=== PATIENT | female | born 1965 | race Hispanic/Latino ===

== ENCOUNTER 2017-08-22 16:30 | Inpatient (IN) | payer BC, OTHER ==
[~2017-08-22] VITALS: Ht 162.6 cm; Wt 77.1 kg
[2017-08-22] MEDS ORDERED: ONDANSETRON HCL INJ 2 MG/ML VIAL IV STA (17:02)
[2017-08-22] MEDS ORDERED: SODIUM CHLORIDE 0.9% 1000ML 2,000 ML IV STA (17:02)
[2017-08-22 17:26] LABS: BASOPHILS % 0.3 % (0.0-1.0); HEMATOCRIT 49.1 % (34.2-44.1); HEMOGLOBIN 16.9 g/dL (12.0-16.0); MEAN CORPUSCULAR HEMOGLOBIN 31.5 pg (28-32); MEAN CORPUSCULAR HGB CONC 34.4 g/dL (31-35); MEAN CORPUSCULAR VOLUME 91.6 fL (81-99); MONOCYTES % 7.9 % (4.4-11.3); NEUTROPHILS # (AUTO) 10.5 (2.1-6.9); NEUTROPHILS % 82.9 % (38.7-80.0); PLATELET COUNT 263 x10e3/uL (140-360); RED BLOOD COUNT 5.36 x10e6/uL (3.6-5.1); RED CELL DISTRIBUTION WIDTH 12.6 % (11.7-14.4)
[2017-08-22 17:51] LABS: ALBUMIN/GLOBULIN RATIO 0.7 (0.8-2.0); ANION GAP 26.7 mmol/L (8-16); CALCIUM 10.8 mg/dL (8.4-10.2); CREATININE, SERUM 1.3 mg/dL (0.57-1.11); POTASSIUM 3.7 mmol/L (3.5-5.1)
[2017-08-22 17:57] LABS: CREATINE KINASE MB 1.3 ng/mL (0.00-5.00)
[2017-08-22] MEDS ORDERED: DEXTROSE 5%/0.45% SOD CHL 1,000 ML IV SCH (18:02)
[2017-08-22] MEDS ORDERED: POTASSIUM CHLORIDE 20MEQ/100ML 200 ML IV PRN (18:15)
[2017-08-22] MEDS ORDERED: MAGNESIUM SULF 1GRAM/DEXTROSE 100 ML IV PRN (18:15)
[2017-08-22] MEDS ORDERED: MORPHINE SULFATE 2 MG/ML SYR IV PRN (18:15)
[2017-08-22] MEDS ORDERED: INSULIN DETEMIR 100 UNIT/ML PEN SQ PRN (18:15)
[2017-08-22] MEDS: SODIUM CHLORIDE 0.9% 1000ML 1,000 ML IV ONE ×2 (19:00→19:59)
--- NOTE | 2017-08-22 19:04 | Diagnostic Imaging Report ---
EXAM: CT Abdomen and Pelvis WITH contrast INDICATION: \S\ABD PAIN \[id number] \S\1819 \S\Y COMPARISON: None. TECHNIQUE: Abdomen and pelvis were scanned utilizing a multidetector helical scanner from the lung base to the pubic symphysis after administration of IV contrast. Coronal and sagittal reformations were obtained. Routine protocol was performed. Scan was performed when during portal venous phase. IV CONTRAST: 100 mL of Isovue-370 ORAL CONTRAST: Water COMPLICATIONS: None RADIATION DOSE: Total DLP: 567.86 mGy*cm Estimated effective dose: (DLP x 0.015 x size factor) mSv CTDIvol has been reviewed. It is below the limits set by the Radiation Protocol Committee (RPC). FINDINGS: LINES and TUBES: None. LOWER THORAX: Unremarkable HEPATOBILIARY: Left hepatic lobe and hepatic dome subcentimeter hypodensities are too small to characterize. No hepatic mass. No biliary ductal dilation. GALLBLADDER: No radio-opaque stones or sludge. No wall thickening. SPLEEN: No splenomegaly. PANCREAS: No focal masses or ductal dilatation. ADRENALS: No adrenal nodules KIDNEYS/URETERS: Kidneys enhance symmetrically. No hydronephrosis. Complex appearing 2.7 cm right midpole parapelvic cyst (series 2, image 40). Stranding in right renal pelvis, surrounding the distal right renal artery, best seen on coronal image 62. No stones. GI TRACT: No abnormal distention, wall thickening, or evidence of bowel obstruction. Appendix is normal. PELVIC ORGANS/BLADDER: Unremarkable. Small calcified anterior uterine body/fundus fibroid. LYMPH NODES: No lymphadenopathy. VESSELS: Unremarkable. PERITONEUM / RETROPERITONEUM: No free air or fluid. BONES: Unremarkable. SOFT TISSUES: Unremarkable. IMPRESSION: Mild fat stranding in right renal pelvis, surrounding the distal right renal artery. There is also a 2.7 cm complex appearing cyst or collection in the right renal pelvis. Distal right renal artery injury with small adjacent hematoma cannot be excluded in the setting of trauma. Alternatively this could represent a mildly inflamed complex parapelvic cyst, mass, or an abscess. Recommend correlation with urinalysis and if indicated short-term follow-up. Otherwise, no evidence of acute inflammatory process or traumatic injury in the abdomen/pelvis. Signed by: Dr. Kavin Dia MD on 08/22/2017 7:00 PM
[2017-08-22] MEDS ORDERED: SODIUM CHLORIDE 0.9% 1000ML 1,000 ML IV ONE (19:10)
[2017-08-22] MEDS: SODIUM CHLORIDE 0.9% 1000ML 1,000 ML IV SCH ×2 (20:05→22:02)
[2017-08-22] MEDS: INSULIN REGULAR, HUMAN 3ML VL 100 UNIT in SODIUM CHLORIDE 0.9% 99 ML IV SCH ×2 (20:20)
[2017-08-22 20:24] LABS: CLARITY,URINE SL CLOUDY (CLEAR); COLOR,URINE YELLOW (YELLOW)
[2017-08-22 20:25] LABS: BILIRUBIN,URINE NEGATIVE (NEGATIVE); KETONES,URINE 3+ (NEGATIVE); LEUKOCYTE ESTERASE ,URINE 1+ (NEGATIVE); NITRITE,URINE NEGATIVE (NEGATIVE); URINE UROBILINOGEN 0.2 mg/dL (0.2 - 1)
[2017-08-22 20:26] LABS: PROTEIN,URINE DIPSTICK 2+ (NEGATIVE)
[2017-08-22 20:41] LABS: EPITHELIAL CELLS,URINE FEW /LPF; WBC,URINE (MAN) 0-5 /HPF (0-5)
[2017-08-22] MEDS: ONDANSETRON HCL INJ 2 MG/ML VIAL IV PRN (20:52)
[2017-08-22 21:25] LABS: ANION GAP 24.9 mmol/L (8-16); CALCIUM 9.7 mg/dL (8.4-10.2); CREATININE, SERUM 1.04 mg/dL (0.57-1.11); MAGNESIUM 1.7 MG/DL (1.3-2.1); POTASSIUM 3.9 mmol/L (3.5-5.1)
[2017-08-22] MEDS ORDERED: IOPAMIDOL 370 MG/ML 200 ML INFUS..BTL INJ ONE (23:03)
[2017-08-22] MEDS ORDERED: SODIUM CHLORIDE 0.9% 50ML 50 ML ONE (23:03)
[2017-08-22 23:50] LABS: ABG PH 7.07 (7.31-7.41)
[2017-08-23] MEDS: ONDANSETRON HCL INJ 2 MG/ML VIAL IV PRN ×2 (00:38→08:56)
[2017-08-23 03:13] LABS: ANION GAP 21.5 mmol/L (8-16); BLOOD UREA NITROGEN 14 mg/dL (7-26); BUN/CREATININE RATIO 12 (6-25); CALCIUM 9.7 mg/dL (8.4-10.2); CHLORIDE 111 mmol/L (98-107); CREATININE, SERUM 1.15 mg/dL (0.57-1.11); EST GLOMERULAR FILTRATION RATE 49 ML/MIN (60-); GLUCOSE 285 mg/dL (74-118); POTASSIUM 3.5 mmol/L (3.5-5.1); SODIUM 134 mmol/L (136-145)
[2017-08-23 03:14] LABS: CARBON DIOXIDE < 5 mmol/L (22-29)
[2017-08-23 03:56] LABS: ABG PH 7.18 (7.31-7.41)
[2017-08-23] MEDS ORDERED: DEXTROSE 5% 1,000 ML IV SCH ×2 (04:00→08:45)
[2017-08-23] MEDS ORDERED: SODIUM BICARBONATE 8.4% IV ONE (04:15)
[2017-08-23] MEDS ORDERED: DEXTROSE 5% IV ONE (04:15)
[2017-08-23] MEDS ORDERED: SODIUM BICARBONATE 8.4% SYRING 50 ML ONE (04:28)
[2017-08-23] MEDS: INSULIN REGULAR, HUMAN 3ML VL 100 UNIT in SODIUM CHLORIDE 0.9% 99 ML IV SCH ×6 (04:45→21:03)
[2017-08-23] MEDS ORDERED: DEXTROSE 5% 1,000 ML IV ONE (04:45)
[2017-08-23 07:00] VITALS: BP 118/68
[2017-08-23 07:10] LABS: ANION GAP 16.1 mmol/L (8-16); CALCIUM 9.7 mg/dL (8.4-10.2); CREATININE, SERUM 1.01 mg/dL (0.57-1.11); MAGNESIUM 1.8 MG/DL (1.3-2.1); POTASSIUM 3.1 mmol/L (3.5-5.1)
[2017-08-23 07:30] VITALS: BP 122/78
[2017-08-23 07:46] VITALS: BP 122/78
[2017-08-23] MEDS ORDERED: INSULIN DETEMIR 100 UNIT/ML PEN SQ PRN (08:45)
[2017-08-23] MEDS ORDERED: MORPHINE SULFATE 2 MG/ML SYR IV PRN (08:45)
[2017-08-23] MEDS ORDERED: POTASSIUM CHLORIDE 20MEQ/100ML 200 ML IV PRN (08:45)
[2017-08-23] MEDS ORDERED: MAGNESIUM SULF 1GRAM/DEXTROSE 100 ML IV PRN (08:45)
[2017-08-23] MEDS: FAMOTIDINE 20 MG/2 ML VIAL IV SCH ×2 (08:56→16:55)
[2017-08-23] MEDS ORDERED: POTASSIUM CHLORIDE 20 MEQ TAB CR PO STA ×2 (09:06→13:54)
[2017-08-23] MEDS ORDERED: POTASSIUM CHLORIDE 20MEQ/100ML 100 ML ONE (09:55)
--- NOTE | 2017-08-23 09:57 | Diagnostic Imaging Report ---
PROCEDURE: A single AP view of the chest. COMPARISON: None. INDICATIONS: DEHYDRATION, WEAKNESS FINDINGS: Lines/tubes: None. Lungs: The lungs are well inflated and clear. There is no evidence of pneumonia or pulmonary edema. Pleura: There is no pleural effusion or pneumothorax. Heart and mediastinum: The heart and the mediastinum are unremarkable. Bones: No acute bony abnormality. IMPRESSION: No acute radiographic abnormality. Dictated by: Rinku Grant M.D. on 08/23/2017 at 10:07 Electronically approved by: Rinku Grant M.D. on 08/23/2017 at 10:07
[2017-08-23] MEDS ORDERED: POTASSIUM CHLORIDE 20MEQ/100ML 100 ML IV ONE ×2 (10:00→14:30)
--- NOTE | 2017-08-23 11:19 | Diagnostic Imaging Report ---
PROCEDURE: A single AP view of the chest. COMPARISON: Chest portable 08/23/2017. INDICATIONS: PICC LINE PLACEMENT FINDINGS: Lines/tubes: Right peripherally inserted central venous catheter with tip projecting over the expected region of the superior vena cava. Lungs: The lungs are well inflated and clear. There is no evidence of pneumonia or pulmonary edema. Pleura: There is no pleural effusion or pneumothorax. Heart and mediastinum: The heart and the mediastinum are unremarkable. Bones: No acute bony abnormality. Degenerative changes of the thoracic spine. IMPRESSION: No acute radiographic abnormality. Dictated by: Rinku Grant M.D. on 08/23/2017 at 11:29 Electronically approved by: Rinku Grant M.D. on 08/23/2017 at 11:29
[2017-08-23 13:38] LABS: ANION GAP 15.2 mmol/L (8-16); BLOOD UREA NITROGEN 15 mg/dL (7-26); BUN/CREATININE RATIO 18 (6-25); CALCIUM 9.3 mg/dL (8.4-10.2); CARBON DIOXIDE 15 mmol/L (22-29); CHLORIDE 110 mmol/L (98-107); CREATININE, SERUM 0.83 mg/dL (0.57-1.11); EST GLOMERULAR FILTRATION RATE > 60 ML/MIN (60-); GLUCOSE 224 mg/dL (74-118); POTASSIUM 3.2 mmol/L (3.5-5.1); SODIUM 137 mmol/L (136-145)
[2017-08-23] MEDS ORDERED: PROMETHAZINE 12.5MG/ NACL 0.9% 12.5 MG/50 ML BAG IV PRN (14:00)
[2017-08-23] MEDS: DEXTROSE 5%/0.45% SOD CHL 1,000 ML IV SCH (16:55)
[2017-08-23] MEDS ORDERED: ENOXAPARIN SOD INJ 40 MG/0.4 ML SYR SC SCH (17:00)
[2017-08-23 18:17] LABS: ANION GAP 16.5 mmol/L (8-16); BLOOD UREA NITROGEN 16 mg/dL (7-26); BUN/CREATININE RATIO 20 (6-25); CALCIUM 9.4 mg/dL (8.4-10.2); CARBON DIOXIDE 15 mmol/L (22-29); CHLORIDE 111 mmol/L (98-107); EST GLOMERULAR FILTRATION RATE > 60 ML/MIN (60-); GLUCOSE 215 mg/dL (74-118); POTASSIUM 3.5 mmol/L (3.5-5.1); SODIUM 139 mmol/L (136-145)
[2017-08-24] VITALS (7 sets, daily range): BP systolic 107–149; BP diastolic 59–138
[2017-08-24] MEDS: ONDANSETRON HCL INJ 2 MG/ML VIAL IV PRN ×3 (00:17→20:30)
[2017-08-24] MEDS: DEXTROSE 5%/0.45% SOD CHL 1,000 ML IV SCH (03:32)
[2017-08-24] MEDS: INSULIN REGULAR, HUMAN 3ML VL 100 UNIT in SODIUM CHLORIDE 0.9% 99 ML IV SCH ×2 (05:37)
[2017-08-24 06:24] LABS: BASOPHILS % 0.3 % (0.0-1.0); EOSINOPHILS % 0.1 % (0.0-6.0); HEMATOCRIT 35.5 % (34.2-44.1); HEMOGLOBIN 12.7 g/dL (12.0-16.0); MEAN CORPUSCULAR HEMOGLOBIN 31.3 pg (28-32); MEAN CORPUSCULAR HGB CONC 35.8 g/dL (31-35); MEAN CORPUSCULAR VOLUME 87.4 fL (81-99); NEUTROPHILS # (AUTO) 6.7 (2.1-6.9); NEUTROPHILS % 77.1 % (38.7-80.0); PLATELET COUNT 215 x10e3/uL (140-360); RED BLOOD COUNT 4.06 x10e6/uL (3.6-5.1); RED CELL DISTRIBUTION WIDTH 12.6 % (11.7-14.4)
[2017-08-24 06:54] LABS: ANION GAP 8.5 mmol/L (8-16); BLOOD UREA NITROGEN 15 mg/dL (7-26); BUN/CREATININE RATIO 23 (6-25); CALCIUM 9.3 mg/dL (8.4-10.2); CARBON DIOXIDE 21 mmol/L (22-29); CHLORIDE 111 mmol/L (98-107); CREATININE, SERUM 0.64 mg/dL (0.57-1.11); EST GLOMERULAR FILTRATION RATE > 60 ML/MIN (60-); GLUCOSE 149 mg/dL (74-118); MAGNESIUM 1.6 MG/DL (1.3-2.1); SODIUM 138 mmol/L (136-145)
[2017-08-24 07:11] LABS: POTASSIUM 2.5 mmol/L (3.5-5.1)
[2017-08-24] MEDS: MORPHINE SULFATE 2 MG/ML SYR IV PRN ×3 (07:48→20:30)
[2017-08-24] MEDS ORDERED: POTASSIUM CHLORIDE 20 MEQ TAB CR PO STA (07:59)
[2017-08-24] MEDS ORDERED: DEXTROSE 50% SYRINGE 50 ML IV PRN (08:00)
[2017-08-24] MEDS ORDERED: INSULIN DETEMIR 100 UNIT/ML PEN SQ SCH (09:00)
[2017-08-24] MEDS ORDERED: INSULIN LISPRO 100 UNIT/1 ML 3ML VIAL SQ SCH (10:00)
[2017-08-24] MEDS: FAMOTIDINE 20 MG/2 ML VIAL IV SCH (10:10)
[2017-08-24] MEDS ORDERED: TRAMADOL HCL 50 MG TAB PO PRN (12:45)
[2017-08-24] MEDS ORDERED: ACETAMINOPHEN/CODEINE 300MG - 30MG TAB PO PRN (12:45)
[2017-08-24] MEDS ORDERED: MAGNESIUM SULFATE 2GM/50ML 50 ML IV ONE (13:00)
[2017-08-24] MEDS: INSULIN LISPRO 100 UNIT/1 ML 3ML VIAL SQ SCH ×2 (17:18→20:30)
[2017-08-25] VITALS (7 sets, daily range): BP systolic 110–142; BP diastolic 62–73
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
[2017-08-25 06:21] LABS: ANION GAP 11.9 mmol/L (8-16); BLOOD UREA NITROGEN 12 mg/dL (7-26); BUN/CREATININE RATIO 20 (6-25); CALCIUM 8.5 mg/dL (8.4-10.2); CARBON DIOXIDE 23 mmol/L (22-29); CHLORIDE 105 mmol/L (98-107); EST GLOMERULAR FILTRATION RATE > 60 ML/MIN (60-); GLUCOSE 272 mg/dL (74-118); SODIUM 137 mmol/L (136-145)
[2017-08-25 06:31] LABS: POTASSIUM 2.9 mmol/L (3.5-5.1)
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
[2017-08-25] MEDS ORDERED: POTASSIUM CHLORIDE 20 MEQ TAB CR PO STA (07:44)
[2017-08-25] MEDS ORDERED: POTASSIUM CHLORIDE 20MEQ/100ML 200 ML IV ONE (07:45)
[2017-08-25] MEDS: METFORMIN HCL 500 MG TAB PO SCH ×3 (08:00→18:43)
[2017-08-25] MEDS ORDERED: POTASSIUM CHLORIDE 100 ML IV SCH (08:00)
[2017-08-25] MEDS: INSULIN LISPRO 100 UNIT/1 ML 3ML VIAL SQ SCH ×4 (08:37→23:30)
[2017-08-25] MEDS: MORPHINE SULFATE 2 MG/ML SYR IV PRN ×2 (11:38→21:47)
[2017-08-25] MEDS ORDERED: SODIUM CHLORIDE 0.9% 50ML 50 ML ONE (14:15)
[2017-08-25] MEDS ORDERED: IOPAMIDOL 370 MG/ML 200 ML INFUS..BTL INJ ONE (14:15)
[2017-08-25] MEDS: SIMETHICONE 80 MG CHEW PO PRN (15:20)
[2017-08-25] MEDS: ONDANSETRON HCL INJ 2 MG/ML VIAL IV PRN (21:27)
[2017-08-26] VITALS (7 sets, daily range): BP systolic 124–134; BP diastolic 57–72
[2017-08-26] MEDS: SIMETHICONE 80 MG CHEW PO PRN (06:14)
[2017-08-26 06:57] LABS: ANION GAP 13.1 mmol/L (8-16); BLOOD UREA NITROGEN 8 mg/dL (7-26); BUN/CREATININE RATIO 15 (6-25); CALCIUM 8.7 mg/dL (8.4-10.2); CARBON DIOXIDE 24 mmol/L (22-29); CHLORIDE 99 mmol/L (98-107); CREATININE, SERUM 0.55 mg/dL (0.57-1.11); EST GLOMERULAR FILTRATION RATE > 60 ML/MIN (60-); GLUCOSE 251 mg/dL (74-118); MAGNESIUM 1.5 MG/DL (1.3-2.1); POTASSIUM 3.1 mmol/L (3.5-5.1); SODIUM 133 mmol/L (136-145)
[2017-08-26] MEDS: METFORMIN HCL 500 MG TAB PO SCH ×2 (09:55→17:31)
[2017-08-26] MEDS: INSULIN LISPRO 100 UNIT/1 ML 3ML VIAL SQ SCH ×4 (09:55→22:41)
[2017-08-26] MEDS: ONDANSETRON HCL INJ 2 MG/ML VIAL IV PRN ×2 (09:55→20:24)
[2017-08-26] MEDS ORDERED: POTASSIUM CHLORIDE 20 MEQ TAB CR PO NR (15:30)
[2017-08-26] MEDS ORDERED: MAGNESIUM SULFATE 2GM/50ML 50 ML IV ONE (15:30)
[2017-08-26] MEDS: SIMETHICONE 80 MG CHEW PO SCH ×2 (17:31→20:24)
[2017-08-26] MEDS ORDERED: DOCUSATE SODIUM 100 MG CAP PO PRN (22:30)
[2017-08-27] VITALS: BP 127/68
[2017-08-27 00:05] VITALS: BP 127/68
[2017-08-27 04:00] VITALS: BP 117/59
[2017-08-27 07:54] LABS: ANION GAP 15.3 mmol/L (8-16); BLOOD UREA NITROGEN 6 mg/dL (7-26); BUN/CREATININE RATIO 10 (6-25); CALCIUM 8.9 mg/dL (8.4-10.2); CARBON DIOXIDE 26 mmol/L (22-29); CHLORIDE 100 mmol/L (98-107); EST GLOMERULAR FILTRATION RATE > 60 ML/MIN (60-); GLUCOSE 234 mg/dL (74-118); MAGNESIUM 1.6 MG/DL (1.3-2.1); POTASSIUM 3.3 mmol/L (3.5-5.1); SODIUM 138 mmol/L (136-145)
[2017-08-27 08:00] VITALS: BP 134/69
[2017-08-27] MEDS: INSULIN LISPRO 100 UNIT/1 ML 3ML VIAL SQ SCH ×2 (08:40→12:59)
[2017-08-27] MEDS: SIMETHICONE 80 MG CHEW PO SCH ×2 (08:46→12:59)
[2017-08-27] MEDS: METFORMIN HCL 500 MG TAB PO SCH (08:46)
[2017-08-27 08:53] VITALS: BP 134/69
[2017-08-27 12:31] VITALS: BP 139/75
[2017-08-27] MEDS ORDERED: SIMETHICONE80 MG PO (13:52)
[2017-08-27] MEDS ORDERED: METFORMIN HCL500 MG PO (13:52)
[2017-08-27] MEDS ORDERED: POTASSIUM CHLORIDE 20 MEQ TAB CR PO ONE (14:30)
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
== END 2017-08-27 15:19 | disposition home or self-care (01) | DRG 637 ==
LOC: ER 16:30 → ERHOLD 18:02 → UNDOADMIN 18:55 → ERHOLD 18:55 → UNDOADMIN 08-23 05:45 → MED/SURG 08-24 12:14
PROVIDERS: ADMIT Internal Medicine; ATTEND Internal Medicine
PROC: 02HV33Z Insertion of Infusion Device into Superior Vena Cava, Percutaneous Approach (ICD-10-PCS; principal; 2017-08-23)
DX: E11.10 Type 2 diabetes mellitus with ketoacidosis without coma (principal); S35.403A Unspecified injury of unspecified renal artery, initial encounter; N17.9 Acute kidney failure, unspecified; S36.420A Contusion of duodenum, initial encounter; E86.0 Dehydration; E13.10 Other specified diabetes mellitus with ketoacidosis without coma; E87.6 Hypokalemia; V49.50XA Passenger injured in collision with unspecified motor vehicles in traffic accident, initial encounter; V89.2XXA Person injured in unspecified motor-vehicle accident, traffic, initial encounter
CPT/HCPCS: 36415; 36569; 36600; 71045; 74177; 80048; 80053; 81001; 82550; 82553; 82805; 82948; 83036; 83690; 83735; 84484; 85025; 87086; 93005; 99284; J1650; J2270; J2405; J2550; J3480; J7030; J7050; J7070; Q9967